=== PATIENT | female | born 1985 | race Caucasian/White ===

== ENCOUNTER 2020-06-04 12:58 | Inpatient (IN) | payer OTHER ==
[2020-06-04] MEDS ORDERED: MAG HYDROX/AL HYDROX/SIMETH 30 ML UNIT-DOSE CUP PO PRN (15:47)
[2020-06-04] MEDS ORDERED: P-EPHED 60MG/TRIPROLIDI 2.5MG TABLET PO PRN (15:47)
[2020-06-04] MEDS ORDERED: LOPERAMIDE HCL 2 MG CAPSULE PO PRN (15:47)
[2020-06-04] MEDS ORDERED: MAGNESIUM CITRATE 300 ML BOTTLE PO PRN (15:47)
[2020-06-04] MEDS ORDERED: MENTHOL/PHENOL 1 EACH UD MM PRN (15:47)
[2020-06-04] MEDS ORDERED: guaiFENesin 200 MG/10 ML 10 ML UNIT-DOSE CUPS PO PRN (15:47)
--- NOTE | 2020-06-04 15:47 | HP ---
[facility] Re[facility] Assess/Revision - Admission History Admitted to Rehab from: [facility] Date of Admission to Rehab: 06/04/2020 - Vital signs Vital Signs: Vital Signs Period Temp Pulse Resp BP Sys/Diehl Pulse Ox Last 24 Hr 98.0 F 95 18 101/70 99 - Findings Detox History & Physical reviewed: Yes Concur with findings: Yes Inpatient Rehab Admission - Rehab Decision to Admit Inpatient rehab admission?: Yes - Initial Determination Are CD services needed?: No Free of communicable disease: Yes Not in need of hospitalization: No - Rehab Admission Criteria Previous failed treatment: Yes Poor recovery environment: Yes Comorbidities: Yes Lacks judgement: Yes Patient is meeting Inpatient Rehab admission criteria:: Yes
[2020-06-04] MEDS: IBUPROFEN 400 MG TABLET (FP) PO PRN (15:58)
[2020-06-04] MEDS: NICOTINE POLACRILEX 2 MG GUM BUC PRN ×2 (17:31→21:14)
[2020-06-04] MEDS: MELATONIN 5 MG TABLETS PO SCH (21:13)
[2020-06-04] MEDS: hydrOXYzine PAMOATE 25 MG CAPSULE (FP) PO PRN (21:14)
[2020-06-04] MEDS: THIAMINE HCL 100 MG TABLET (FP) PO SCH (21:14)
[2020-06-05] MEDS: NICOTINE POLACRILEX 2 MG GUM BUC PRN ×4 (06:53→16:57)
[2020-06-05] MEDS: PRENATAL VITAMINS W/ FOLIC ACID TABLET (FP) PO SCH (09:52)
[2020-06-05] MEDS: hydrOXYzine PAMOATE 25 MG CAPSULE (FP) PO PRN ×3 (09:54→19:32)
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
[2020-06-05] MEDS ORDERED: NORETHINDRONE E ESTRADIOL IRON PO SCH (12:00)
[2020-06-05] MEDS: NICOTINE 21 MG/24 HOURS TOPICAL PATCH TD SCH (12:23)
[2020-06-05] MEDS: FLUoxetine HCL 20 MG CAPSULE PO SCH (12:23)
--- NOTE | 2020-06-05 14:35 | PN ---
[facility] Progress Note Note: Patient requested to have her OCP medication June ordered. [facility] at [phone] called and verified active prescription, however, medication non- formulary at [facility]. [facility] willing to deliver medication tomorrow to [facility] between 12-4pm. Patient to call pharmacy today to authorize refill of medication. Pharmacist Shilpa informed once medication authorized it is to be delivered to facility. Dr. Edgar updated on patients status. Vital Signs Temperature 97.8 F 06/05/20 06:30 Pulse Rate 78 06/05/20 06:30 Respiratory Rate 16 06/05/20 06:30 Blood Pressure 109/72 06/05/20 06:30 O2 Sat by Pulse Oximetry (%) 99 06/05/20 06:30
[2020-06-05 15:01] LABS: BASO % 0.6 % (0-2.0); EOS % 2.1 % (0-4.5); HEMATOCRIT 34.2 % (32.4-45.2); HEMOGLOBIN 11.3 GM/dL (10.7-15.3); MCHC 33.2 g/dl (32.0-36.0); MEAN CELL VOLUME 93.5 fl (80-96); MEAN PLT VOLUME 7.8 fl (7.5-11.1); MONO % 5.2 % (3.8-10.2); NEUT % 71.1 % (42.8-82.8); PLATELET COUNT 502 K/MM3 (134-434); RBC 3.65 M/mm3 (3.60-5.2); RDW 16.4 % (11.6-15.6); WHITE BLOOD COUNT 6.7 K/mm3 (4.0-10.0)
[2020-06-05] MEDS: IBUPROFEN 400 MG TABLET (FP) PO PRN (19:31)
[2020-06-05] MEDS: MELATONIN 5 MG TABLETS PO SCH (21:56)
[2020-06-05] MEDS: THIAMINE HCL 100 MG TABLET (FP) PO SCH (21:56)
[2020-06-06] MEDS: NICOTINE POLACRILEX 2 MG GUM BUC PRN ×5 (07:15→21:27)
[2020-06-06] MEDS: FLUoxetine HCL 20 MG CAPSULE PO SCH (09:38)
[2020-06-06] MEDS: NICOTINE 21 MG/24 HOURS TOPICAL PATCH TD SCH (09:39)
[2020-06-06] MEDS: PRENATAL VITAMINS W/ FOLIC ACID TABLET (FP) PO SCH (09:39)
[2020-06-06] MEDS: IBUPROFEN 400 MG TABLET (FP) PO PRN (09:40)
[2020-06-06] MEDS: hydrOXYzine PAMOATE 25 MG CAPSULE (FP) PO PRN ×3 (09:40→21:25)
[2020-06-06] MEDS: THIAMINE HCL 100 MG TABLET (FP) PO SCH (21:25)
[2020-06-06] MEDS: MELATONIN 5 MG TABLETS PO SCH (21:26)
[2020-06-07] MEDS: NICOTINE POLACRILEX 2 MG GUM BUC PRN ×5 (07:21→21:51)
[2020-06-07] MEDS: FLUoxetine HCL 20 MG CAPSULE PO SCH (10:02)
[2020-06-07] MEDS: hydrOXYzine PAMOATE 25 MG CAPSULE (FP) PO PRN ×3 (10:02→21:50)
[2020-06-07] MEDS: PRENATAL VITAMINS W/ FOLIC ACID TABLET (FP) PO SCH (10:02)
[2020-06-07] MEDS: NICOTINE 21 MG/24 HOURS TOPICAL PATCH TD SCH (10:02)
[2020-06-07] MEDS: NORETHINDRONE E ESTRADIOL IRON PO SCH (10:03)
[2020-06-07] MEDS: IBUPROFEN 400 MG TABLET (FP) PO PRN (16:56)
[2020-06-07] MEDS: THIAMINE HCL 100 MG TABLET (FP) PO SCH (21:50)
[2020-06-07] MEDS: MELATONIN 5 MG TABLETS PO SCH (21:50)
[2020-06-08] MEDS: NICOTINE POLACRILEX 2 MG GUM BUC PRN ×5 (06:57→21:40)
[2020-06-08] MEDS: NORETHINDRONE E ESTRADIOL IRON PO SCH (09:11)
[2020-06-08] MEDS: NICOTINE 21 MG/24 HOURS TOPICAL PATCH TD SCH (09:11)
[2020-06-08] MEDS: hydrOXYzine PAMOATE 25 MG CAPSULE (FP) PO PRN ×3 (09:12→21:40)
[2020-06-08] MEDS: PRENATAL VITAMINS W/ FOLIC ACID TABLET (FP) PO SCH (09:12)
[2020-06-08] MEDS: FLUoxetine HCL 20 MG CAPSULE PO SCH (09:12)
[2020-06-08] MEDS: THIAMINE HCL 100 MG TABLET (FP) PO SCH (21:40)
[2020-06-08] MEDS: MELATONIN 5 MG TABLETS PO SCH (21:40)
[2020-06-09] MEDS: NICOTINE POLACRILEX 2 MG GUM BUC PRN ×5 (07:40→21:18)
[2020-06-09] MEDS: NICOTINE 21 MG/24 HOURS TOPICAL PATCH TD SCH (09:49)
[2020-06-09] MEDS: PRENATAL VITAMINS W/ FOLIC ACID TABLET (FP) PO SCH (09:49)
[2020-06-09] MEDS: NORETHINDRONE E ESTRADIOL IRON PO SCH (09:49)
[2020-06-09] MEDS: hydrOXYzine PAMOATE 25 MG CAPSULE (FP) PO PRN ×3 (09:49→21:17)
[2020-06-09] MEDS: FLUoxetine HCL 20 MG CAPSULE PO SCH (09:49)
[2020-06-09] MEDS: MELATONIN 5 MG TABLETS PO SCH (21:17)
[2020-06-09] MEDS: THIAMINE HCL 100 MG TABLET (FP) PO SCH (21:17)
[2020-06-10] MEDS: NICOTINE 21 MG/24 HOURS TOPICAL PATCH TD SCH (10:20)
[2020-06-10] MEDS: FLUoxetine HCL 20 MG CAPSULE PO SCH (10:20)
[2020-06-10] MEDS: NORETHINDRONE E ESTRADIOL IRON PO SCH (10:20)
[2020-06-10] MEDS: PRENATAL VITAMINS W/ FOLIC ACID TABLET (FP) PO SCH (10:20)
[2020-06-10] MEDS: NICOTINE POLACRILEX 2 MG GUM BUC PRN ×4 (10:21→20:03)
[2020-06-10] MEDS: hydrOXYzine PAMOATE 25 MG CAPSULE (FP) PO PRN ×3 (10:21→21:33)
[2020-06-10] MEDS: MELATONIN 5 MG TABLETS PO SCH (21:33)
[2020-06-10] MEDS: THIAMINE HCL 100 MG TABLET (FP) PO SCH (21:33)
[2020-06-11] MEDS: NICOTINE POLACRILEX 2 MG GUM BUC PRN ×5 (06:30→20:07)
[2020-06-11] MEDS ORDERED: PT OWN MED DRAWER 7, Y5N ONE (08:35)
[2020-06-11] MEDS: NICOTINE 21 MG/24 HOURS TOPICAL PATCH TD SCH (09:58)
[2020-06-11] MEDS: FLUoxetine HCL 20 MG CAPSULE PO SCH (09:58)
[2020-06-11] MEDS: NORETHINDRONE E ESTRADIOL IRON PO SCH (09:58)
[2020-06-11] MEDS: PRENATAL VITAMINS W/ FOLIC ACID TABLET (FP) PO SCH (09:59)
[2020-06-11] MEDS: hydrOXYzine PAMOATE 25 MG CAPSULE (FP) PO PRN ×2 (09:59→21:37)
[2020-06-11] MEDS: MELATONIN 5 MG TABLETS PO SCH (21:36)
[2020-06-11] MEDS: THIAMINE HCL 100 MG TABLET (FP) PO SCH (21:38)
[2020-06-12] MEDS: NICOTINE POLACRILEX 2 MG GUM BUC PRN ×5 (08:34→21:24)
[2020-06-12] MEDS ORDERED: COLLOIDAL OATMEAL 1 BAR EACH TP PRN (09:04)
[2020-06-12] MEDS: FLUoxetine HCL 20 MG CAPSULE PO SCH (09:58)
[2020-06-12] MEDS: hydrOXYzine PAMOATE 25 MG CAPSULE (FP) PO PRN ×2 (09:58→21:23)
[2020-06-12] MEDS: NICOTINE 21 MG/24 HOURS TOPICAL PATCH TD SCH (09:58)
[2020-06-12] MEDS: NORETHINDRONE E ESTRADIOL IRON PO SCH (09:58)
[2020-06-12] MEDS: PRENATAL VITAMINS W/ FOLIC ACID TABLET (FP) PO SCH (09:59)
[2020-06-12] MEDS: MELATONIN 5 MG TABLETS PO SCH (21:23)
[2020-06-12] MEDS: THIAMINE HCL 100 MG TABLET (FP) PO SCH (21:23)
[2020-06-13] MEDS: NICOTINE POLACRILEX 2 MG GUM BUC PRN ×3 (07:39→14:50)
[2020-06-13] MEDS ORDERED: PT OWN MED DRAWER 7, Y5N ONE ×2 (09:10→16:27)
[2020-06-13] MEDS: NICOTINE 21 MG/24 HOURS TOPICAL PATCH TD SCH (09:56)
[2020-06-13] MEDS: PRENATAL VITAMINS W/ FOLIC ACID TABLET (FP) PO SCH (09:58)
[2020-06-13] MEDS: hydrOXYzine PAMOATE 25 MG CAPSULE (FP) PO PRN ×2 (09:58→21:32)
[2020-06-13] MEDS: NORETHINDRONE E ESTRADIOL IRON PO SCH (09:58)
[2020-06-13] MEDS: FLUoxetine HCL 20 MG CAPSULE PO SCH (09:58)
[2020-06-13] MEDS: THIAMINE HCL 100 MG TABLET (FP) PO SCH (21:32)
[2020-06-13] MEDS: MELATONIN 5 MG TABLETS PO SCH (21:32)
[2020-06-14] MEDS: NICOTINE POLACRILEX 2 MG GUM BUC PRN ×5 (07:28→21:52)
[2020-06-14] MEDS: FLUoxetine HCL 20 MG CAPSULE PO SCH (09:42)
[2020-06-14] MEDS: NORETHINDRONE E ESTRADIOL IRON PO SCH (09:42)
[2020-06-14] MEDS: NICOTINE 21 MG/24 HOURS TOPICAL PATCH TD SCH (09:42)
[2020-06-14] MEDS: PRENATAL VITAMINS W/ FOLIC ACID TABLET (FP) PO SCH (09:42)
[2020-06-14] MEDS: THIAMINE HCL 100 MG TABLET (FP) PO SCH (21:52)
[2020-06-14] MEDS: hydrOXYzine PAMOATE 25 MG CAPSULE (FP) PO PRN (21:52)
[2020-06-14] MEDS: MELATONIN 5 MG TABLETS PO SCH (22:14)
[2020-06-15] MEDS: PRENATAL VITAMINS W/ FOLIC ACID TABLET (FP) PO SCH (10:01)
[2020-06-15] MEDS: FLUoxetine HCL 20 MG CAPSULE PO SCH (10:02)
[2020-06-15] MEDS: NICOTINE 21 MG/24 HOURS TOPICAL PATCH TD SCH (10:02)
[2020-06-15] MEDS: hydrOXYzine PAMOATE 25 MG CAPSULE (FP) PO PRN ×3 (10:02→21:27)
[2020-06-15] MEDS: NORETHINDRONE E ESTRADIOL IRON PO SCH (10:02)
[2020-06-15] MEDS: NICOTINE POLACRILEX 2 MG GUM BUC PRN ×5 (10:03→21:27)
[2020-06-15] MEDS: THIAMINE HCL 100 MG TABLET (FP) PO SCH (21:26)
[2020-06-15] MEDS: MELATONIN 5 MG TABLETS PO SCH (21:27)
[2020-06-16] MEDS: NICOTINE POLACRILEX 2 MG GUM BUC PRN ×4 (06:39→22:37)
[2020-06-16] MEDS: NORETHINDRONE E ESTRADIOL IRON PO SCH (09:47)
[2020-06-16] MEDS: FLUoxetine HCL 20 MG CAPSULE PO SCH (09:47)
[2020-06-16] MEDS: PRENATAL VITAMINS W/ FOLIC ACID TABLET (FP) PO SCH (09:48)
[2020-06-16] MEDS: hydrOXYzine PAMOATE 25 MG CAPSULE (FP) PO PRN ×2 (09:48→21:43)
[2020-06-16] MEDS: NICOTINE 21 MG/24 HOURS TOPICAL PATCH TD SCH (09:49)
[2020-06-16] MEDS: THIAMINE HCL 100 MG TABLET (FP) PO SCH (21:42)
[2020-06-16] MEDS: MELATONIN 5 MG TABLETS PO SCH (21:42)
[2020-06-17] MEDS: NICOTINE POLACRILEX 2 MG GUM BUC PRN ×4 (07:05→17:34)
[2020-06-17] MEDS: PRENATAL VITAMINS W/ FOLIC ACID TABLET (FP) PO SCH (09:59)
[2020-06-17] MEDS: hydrOXYzine PAMOATE 25 MG CAPSULE (FP) PO PRN ×2 (10:00→21:40)
[2020-06-17] MEDS: FLUoxetine HCL 20 MG CAPSULE PO SCH (10:00)
[2020-06-17] MEDS: NICOTINE 21 MG/24 HOURS TOPICAL PATCH TD SCH (10:00)
[2020-06-17] MEDS: NORETHINDRONE E ESTRADIOL IRON PO SCH (10:00)
[2020-06-17] MEDS: THIAMINE HCL 100 MG TABLET (FP) PO SCH (21:40)
[2020-06-17] MEDS: MELATONIN 5 MG TABLETS PO SCH (21:41)
[2020-06-18] MEDS: FLUoxetine HCL 20 MG CAPSULE PO SCH (09:49)
[2020-06-18] MEDS: NORETHINDRONE E ESTRADIOL IRON PO SCH (09:49)
[2020-06-18] MEDS: NICOTINE 21 MG/24 HOURS TOPICAL PATCH TD SCH (09:49)
[2020-06-18] MEDS: hydrOXYzine PAMOATE 25 MG CAPSULE (FP) PO PRN ×3 (09:49→21:18)
[2020-06-18] MEDS: PRENATAL VITAMINS W/ FOLIC ACID TABLET (FP) PO SCH (09:49)
[2020-06-18] MEDS: NICOTINE POLACRILEX 2 MG GUM BUC PRN ×5 (09:50→21:18)
[2020-06-18] MEDS: MELATONIN 5 MG TABLETS PO SCH (21:17)
[2020-06-18] MEDS: THIAMINE HCL 100 MG TABLET (FP) PO SCH (21:17)
[2020-06-19] MEDS: NICOTINE POLACRILEX 2 MG GUM BUC PRN ×4 (06:52→19:07)
[2020-06-19] MEDS: NICOTINE 21 MG/24 HOURS TOPICAL PATCH TD SCH (09:21)
[2020-06-19] MEDS: NORETHINDRONE E ESTRADIOL IRON PO SCH (09:22)
[2020-06-19] MEDS: hydrOXYzine PAMOATE 25 MG CAPSULE (FP) PO PRN ×3 (09:22→21:14)
[2020-06-19] MEDS: FLUoxetine HCL 20 MG CAPSULE PO SCH (09:22)
[2020-06-19] MEDS: PRENATAL VITAMINS W/ FOLIC ACID TABLET (FP) PO SCH (09:22)
[2020-06-19] MEDS: THIAMINE HCL 100 MG TABLET (FP) PO SCH (21:14)
[2020-06-19] MEDS: MELATONIN 5 MG TABLETS PO SCH (21:15)
[2020-06-20] MEDS: NICOTINE POLACRILEX 2 MG GUM BUC PRN ×7 (07:03→21:09)
[2020-06-20] MEDS: hydrOXYzine PAMOATE 25 MG CAPSULE (FP) PO PRN ×3 (10:22→21:08)
[2020-06-20] MEDS: NICOTINE 21 MG/24 HOURS TOPICAL PATCH TD SCH (10:22)
[2020-06-20] MEDS: FLUoxetine HCL 20 MG CAPSULE PO SCH (10:22)
[2020-06-20] MEDS: NORETHINDRONE E ESTRADIOL IRON PO SCH (10:22)
[2020-06-20] MEDS: PRENATAL VITAMINS W/ FOLIC ACID TABLET (FP) PO SCH (10:24)
[2020-06-20] MEDS: MELATONIN 5 MG TABLETS PO SCH (21:08)
[2020-06-20] MEDS: THIAMINE HCL 100 MG TABLET (FP) PO SCH (21:08)
[2020-06-21] MEDS: NICOTINE POLACRILEX 2 MG GUM BUC PRN ×6 (06:44→21:29)
[2020-06-21] MEDS: FLUoxetine HCL 20 MG CAPSULE PO SCH (09:52)
[2020-06-21] MEDS: NORETHINDRONE E ESTRADIOL IRON PO SCH (09:52)
[2020-06-21] MEDS: hydrOXYzine PAMOATE 25 MG CAPSULE (FP) PO PRN ×3 (09:52→21:29)
[2020-06-21] MEDS: NICOTINE 21 MG/24 HOURS TOPICAL PATCH TD SCH (09:52)
[2020-06-21] MEDS: PRENATAL VITAMINS W/ FOLIC ACID TABLET (FP) PO SCH (09:52)
[2020-06-21] MEDS: MAGNESIUM HYDROX 2400MG/30ML ORAL SUSPENSION 30 ML CUP PO PRN (11:48)
[2020-06-21] MEDS: IBUPROFEN 400 MG TABLET (FP) PO PRN (15:24)
[2020-06-21] MEDS: MELATONIN 5 MG TABLETS PO SCH (21:29)
[2020-06-21] MEDS: THIAMINE HCL 100 MG TABLET (FP) PO SCH (21:29)
[2020-06-22] MEDS: NICOTINE POLACRILEX 2 MG GUM BUC PRN ×4 (07:11→16:23)
[2020-06-22] MEDS: hydrOXYzine PAMOATE 25 MG CAPSULE (FP) PO PRN ×2 (09:50→21:12)
[2020-06-22] MEDS: PRENATAL VITAMINS W/ FOLIC ACID TABLET (FP) PO SCH (09:50)
[2020-06-22] MEDS: NICOTINE 21 MG/24 HOURS TOPICAL PATCH TD SCH (09:50)
[2020-06-22] MEDS: NORETHINDRONE E ESTRADIOL IRON PO SCH (09:50)
[2020-06-22] MEDS: FLUoxetine HCL 20 MG CAPSULE PO SCH (09:50)
--- NOTE | 2020-06-22 11:30 | PN ---
Psychiatric Progress Note Vital Signs: Vital Signs Period Temp Pulse Resp BP Sys/Diehl Pulse Ox Last 24 Hr 98.2 F 67 20 110/74 98-100 Date of Session: 06/22/20 Chief Complaint:: "I feel sad and I am having worsening anxiety." HPI: Patient admitted to [facility] for alcohol dependence. Consultation ordered due to patient complaining of increase anxiety. ROS: Patient is calm, cooperative, alert +oriented X3. Current Medications: Active Medications Generic Name Dose Route Start Last Admin Trade Name Freq PRN Reason Stop Dose Admin Acetaminophen 650 mg 06/04/20 15:47 Tylenol - PO Q4H PRN FEVER Al Hydroxide/Mg Hydroxide 30 ml 06/04/20 15:47 Mylanta Oral Suspension - PO Q6H PRN DYSPEPSIA Colloidal Oatmeal 1 applic 06/12/20 09:04 06/12/20 09:58 Aveeno Soap - TP 1 bar DAILY PRN Administration HYGEINE Eucalyptus/Menthol/Phenol/Sorbitol 1 each 06/04/20 15:47 Cepastat Lozenge - MM Q4H PRN SORE THROAT Fluoxetine HCl 20 mg 06/05/20 11:45 06/22/20 09:50 Prozac - PO 20 mg DAILY BARRY Administration Guaifenesin 10 ml 06/04/20 15:47 Robitussin - PO Q6H PRN COUGH Hydroxyzine Pamoate 25 mg 06/05/20 11:42 06/22/20 09:50 Vistaril - PO 25 mg Q4H PRN Administration ANXIETY Ibuprofen 400 mg 06/04/20 15:47 06/21/20 15:24 Motrin - PO 400 mg Q6H PRN Administration Pain Level 4-6 Loperamide HCl 4 mg 06/04/20 15:47 Imodium - PO Q6H PRN DIARRHEA Magnesium Citrate 300 ml 06/04/20 15:47 Citroma - PO Q48H PRN CONSTIPATION Magnesium Hydroxide 30 ml 06/04/20 15:47 06/21/20 11:48 Milk Of Magnesia - PO 30 ml DAILY PRN Administration CONSTIPATION Melatonin 5 mg 06/04/20 22:00 06/21/20 21:29 Melatonin PO 5 mg HS BARRY Administration Nicotine 21 mg 06/05/20 12:00 06/22/20 09:50 Nicoderm Patch - TD 21 mg DAILY BARRY Administration Nicotine Polacrilex 4 mg 06/05/20 11:54 06/22/20 09:51 Nicorette Gum - BUC 4 mg Q2H PRN Administration NICOTINE REPLACEMENT RX Non-Formulary Medication 1 each 06/07/20 10:00 06/22/20 09:50 Norethindrone-E.Estradiol-Iron [Junel Fe 24 Tablet] PO 1 each DAILY BARRY Administration Multivit/Folic Acid/Iron 1 tab 06/05/20 10:00 06/22/20 09:50 Vitamins (Sjr) - PO 1 tab DAILY BARRY Administration Pseudoephedrine/Triprolidine 1 combo 06/04/20 15:47 Actifed - PO TID PRN NASAL CONGESTION Thiamine HCl 100 mg 06/04/20 22:00 06/21/20 21:29 Vitamin B1 - PO 100 mg HS BARRY Administration Medication(s) Change(s): Will d/c Prozac 20mg daily + Vistaril 25mg q4h. 2) Will order Prozac 40mg daily + Vistaril 50mg q6h. Current Side Effect: No Lab tests ordered: No Lab tests reviewed: Yes Provider note:: Patient reports stable mood but reports feeling more sad then usual with increase anxiety. States that she is worried about discharge and has alot on her mind concerning external factors that she did not want to discuss. Patient requesting an increase in Prozac + Vistaril. She reports a history of taking prozac 80mg in the past. Will d/c prozac 20mg + Vistaril 25mg q4h. Will order Prozac 40mg daily + Vistaril 50mg q6h. Patient also educated on the importance of utilizig her coping skills. Patient satisifed and receptive to feedback. Total face to face time:: 25 Mental Status Exam - Mental Status Exam Alert and Oriented to: Time, Place, Person Cognitive Function: Good Patient Appearance: Well Groomed Mood: Anxious, Hopeful Affect: Appropriate Patient Behavior: Appropriate, Cooperative Speech Pattern: Appropriate Voice Loudness: Normal Thought Process: Goal Oriented Thought Disorder: Not Present Hallucinations: Denies Suicidal Ideation: Denies Homicidal Ideation: Denies Insight/Judgement: Poor Sleep: Poorly Appetite: Poor Muscle strength/Tone: Normal Gait/Station: Normal Psychiatric Treatment Plan - Problem List (1) Alcohol-induced mood disorder Current Visit: Yes (2) MDD (major depressive disorder) Current Visit: Yes (3) PTSD (post-traumatic stress disorder) Current Visit: Yes (4) Nicotine dependence Current Visit: Yes
[2020-06-22] MEDS: MAGNESIUM HYDROX 2400MG/30ML ORAL SUSPENSION 30 ML CUP PO PRN (11:32)
[2020-06-22] MEDS: IBUPROFEN 400 MG TABLET (FP) PO PRN ×2 (11:33→17:25)
[2020-06-22] MEDS: THIAMINE HCL 100 MG TABLET (FP) PO SCH (21:12)
[2020-06-22] MEDS: MELATONIN 5 MG TABLETS PO SCH (21:12)
[2020-06-23] MEDS: IBUPROFEN 400 MG TABLET (FP) PO PRN ×3 (06:58→21:14)
[2020-06-23] MEDS: NICOTINE POLACRILEX 2 MG GUM BUC PRN ×7 (06:58→21:17)
[2020-06-23] MEDS: hydrOXYzine PAMOATE 25 MG CAPSULE (FP) PO PRN ×2 (09:40→14:24)
[2020-06-23] MEDS: FLUoxetine HCL 20 MG CAPSULE PO SCH (09:40)
[2020-06-23] MEDS: PRENATAL VITAMINS W/ FOLIC ACID TABLET (FP) PO SCH (09:41)
[2020-06-23] MEDS: NORETHINDRONE E ESTRADIOL IRON PO SCH (09:41)
[2020-06-23] MEDS: NICOTINE 21 MG/24 HOURS TOPICAL PATCH TD SCH (09:41)
[2020-06-23] MEDS: MAGNESIUM HYDROX 2400MG/30ML ORAL SUSPENSION 30 ML CUP PO PRN (18:51)
[2020-06-23] MEDS: hydrOXYzine PAMOATE 50 MG CAPSULE (FP) PO PRN (21:16)
[2020-06-23] MEDS: THIAMINE HCL 100 MG TABLET (FP) PO SCH (21:16)
[2020-06-23] MEDS: MELATONIN 5 MG TABLETS PO SCH (21:16)
[2020-06-24] MEDS: IBUPROFEN 400 MG TABLET (FP) PO PRN ×2 (07:18→16:52)
[2020-06-24] MEDS: NICOTINE POLACRILEX 2 MG GUM BUC PRN ×5 (07:18→19:24)
[2020-06-24] MEDS: NORETHINDRONE E ESTRADIOL IRON PO SCH (10:13)
[2020-06-24] MEDS: PRENATAL VITAMINS W/ FOLIC ACID TABLET (FP) PO SCH (10:13)
[2020-06-24] MEDS: NICOTINE 21 MG/24 HOURS TOPICAL PATCH TD SCH (10:13)
[2020-06-24] MEDS: FLUoxetine HCL 20 MG CAPSULE PO SCH (10:13)
[2020-06-24] MEDS: hydrOXYzine PAMOATE 50 MG CAPSULE (FP) PO PRN ×2 (10:14→21:22)
[2020-06-24] MEDS: THIAMINE HCL 100 MG TABLET (FP) PO SCH (21:20)
[2020-06-24] MEDS: MELATONIN 5 MG TABLETS PO SCH (21:20)
[2020-06-25] MEDS: IBUPROFEN 400 MG TABLET (FP) PO PRN ×2 (07:06→13:26)
[2020-06-25] MEDS: NICOTINE POLACRILEX 2 MG GUM BUC PRN ×5 (07:07→21:37)
[2020-06-25] MEDS: NORETHINDRONE E ESTRADIOL IRON PO SCH (10:08)
[2020-06-25] MEDS: NICOTINE 21 MG/24 HOURS TOPICAL PATCH TD SCH (10:08)
[2020-06-25] MEDS: FLUoxetine HCL 20 MG CAPSULE PO SCH (10:09)
[2020-06-25] MEDS: hydrOXYzine PAMOATE 50 MG CAPSULE (FP) PO PRN ×2 (10:10→21:36)
[2020-06-25] MEDS: ACETAMINOPHEN 325 MG TABLET (FP) PO PRN ×2 (10:10→15:50)
[2020-06-25] MEDS: PRENATAL VITAMINS W/ FOLIC ACID TABLET (FP) PO SCH (10:11)
[2020-06-25] MEDS: THIAMINE HCL 100 MG TABLET (FP) PO SCH (21:36)
[2020-06-25] MEDS: MELATONIN 5 MG TABLETS PO SCH (21:37)
[2020-06-26 06:53] VITALS: TEMP 98.6
[2020-06-26] MEDS: IBUPROFEN 400 MG TABLET (FP) PO PRN (07:13)
[2020-06-26] MEDS: NICOTINE POLACRILEX 2 MG GUM BUC PRN ×5 (07:14→21:20)
[2020-06-26] MEDS: NICOTINE 21 MG/24 HOURS TOPICAL PATCH TD SCH (09:53)
[2020-06-26] MEDS: NORETHINDRONE E ESTRADIOL IRON PO SCH (09:53)
[2020-06-26] MEDS: FLUoxetine HCL 20 MG CAPSULE PO SCH (09:54)
[2020-06-26] MEDS: hydrOXYzine PAMOATE 50 MG CAPSULE (FP) PO PRN ×2 (09:54→21:19)
[2020-06-26] MEDS: PRENATAL VITAMINS W/ FOLIC ACID TABLET (FP) PO SCH (09:54)
--- NOTE | 2020-06-26 12:59 | PN ---
[facility] Progress Note Note: Patient is scheduled for discharge tomorrow. Script for 30 days supply of Prozac 40 mg/day will be electronically transmitted to [facility], [address] [place] [id number]
[2020-06-26] MEDS: MELATONIN 5 MG TABLETS PO SCH (21:20)
[2020-06-26] MEDS: THIAMINE HCL 100 MG TABLET (FP) PO SCH (21:21)
[2020-06-27 07:01] VITALS: BP 118/85; PULSE 78
[2020-06-27] MEDS: NICOTINE POLACRILEX 2 MG GUM BUC PRN (07:20)
--- NOTE | 2020-06-27 08:22 | DS ---
[facility] Rehab Discharge Summary - [facility] Rehab Discharge Summary Admission Date: 06/04/20 Discharge Date: 06/27/20 - History Present History: Alcohol dependence Pertinent Past History: 34 year old female with history of alcohol dependence who has been drinking heavily for 2 years. She was s/p [facility] after alcohol intoxication brought there by her mother who was very concerned about her. - Discharge Physical Exam Vital Signs: Vital Signs Temperature 98.6 F 06/27/20 06:10 Pulse Rate 78 06/27/20 06:10 Respiratory Rate 06/27/20 06:10 Blood Pressure 118/85 06/27/20 06:10 O2 Sat by Pulse Oximetry (%) 98 06/27/20 06:10 Pertinent Admission Physical Exam Findings: Physical General Appearance: No apparent Distress, HEENTM: EOMI, Normocephalic,STONEY, Respiratory: Lungs Clear, Neck: Supple, Abdominal: +Bowel Sounds, Musculoskeletal: full range of Motion, Gait Steady, Pelvis Stable Neurological: general handling supervisor II-XII intact, - Treatment Discharge Condition: Discharge condition good (medically stable for discharge), Outpatient referral accepted (Patient will go to [facility]) Hospital Course: Patient attended groups, had 1:1 with her provider, and was seen by the psychiatric service. Patient had no acute or urgent medical problems while in rehab. - Medication Discharge Medications: Ambulatory Orders Fluoxetine HCl [Prozac -] 20 mg PO DAILY 05/31/20 Norethindrone-E.estradiol-Iron [Junel Fe 24 Tablet] 1 each PO DAILY 05/31/20 Fluoxetine HCl [Prozac] 40 mg PO DAILY #30 cap 06/26/20 - Discharge Instructions Diet, activity, other medical instructions: Diet: Activity: Other medical instructions: - Diagnosis (1) Alcohol-induced mood disorder Current Visit: Yes Status: Chronic - Follow-up Referral Minutes to complete discharge: 15 - AMA Did Patient Leave Against Medical Advice: No
[2020-06-27] MEDS: FLUoxetine HCL 20 MG CAPSULE PO SCH (09:03)
[2020-06-27] MEDS: NORETHINDRONE E ESTRADIOL IRON PO SCH (09:03)
[2020-06-27] MEDS: NICOTINE 21 MG/24 HOURS TOPICAL PATCH TD SCH (09:03)
[2020-06-27] MEDS: PRENATAL VITAMINS W/ FOLIC ACID TABLET (FP) PO SCH (09:03)
== END 2020-06-27 09:10 | disposition home or self-care (01) | DRG 772 ==
LOC: YASAS 12:58 → Y3E 12:59
PROVIDERS: ADMIT Allergy & Immunology; ATTEND Allergy & Immunology
PROC: HZ42ZZZ Group Counseling for Substance Abuse Treatment, Cognitive-Behavioral (ICD-10-PCS; principal; 2020-06-04)
DX: F10.20 Alcohol dependence, uncomplicated (principal); F17.210 Nicotine dependence, cigarettes, uncomplicated; F10.24 Alcohol dependence with alcohol-induced mood disorder; F32.9 Major depressive disorder, single episode, unspecified; F43.10 Post-traumatic stress disorder, unspecified; Z62.810 Personal history of physical and sexual abuse in childhood; Z91.5 Personal history of self-harm
CPT/HCPCS: 36415; 85025